=== PATIENT | male | born 1945 | race Hispanic/Latino ===

== ENCOUNTER 2018-01-07 11:00 | Emergency (ER) | payer MEDICARE | END 2018-01-07 11:52 | disposition home or self-care (01) | LOC: EDH 11:00 | DX: Z21 Asymptomatic human immunodeficiency virus [HIV] infection status (principal); Z76.0 Encounter for issue of repeat prescription; I10 Essential (primary) hypertension; Z88.2 Allergy status to sulfonamides; Z87.891 Personal history of nicotine dependence; Z95.1 Presence of aortocoronary bypass graft ==

== ENCOUNTER 2018-07-03 17:26 | Observation (INO) | payer MEDICARE ==
[~2018-07-03] VITALS: Ht 177.8 cm; Wt 81.4 kg
[2018-07-03 18:13] LABS: BASOPHILS % (AUTO) 0.9 % (0.0-5.0); EOSINOPHILS % (AUTO) 2.7 % (0.0-8.0); LYMPHOCYTES % (AUTO) 16.8 % (21.0-51.0); MEAN CORPUSCULAR HEMOGLOBIN 31.8 pg (27.0-33.0); MEAN CORPUSCULAR HGB CONC 34.3 g/dL (32.0-36.0); MEAN CORPUSCULAR VOLUME 92.7 fL (79-99); MONOCYTES % (AUTO) 8.4 % (3.0-13.0); NEUTROPHILS % (AUTO) 71.2 % (40.0-77.0); NUCLEATED RED BLOOD CELLS 0.1 % (0.0-0.19); PLATELET COUNT (AUTO) 175 K/uL (130-400); RED BLOOD CELL COUNT(AUTO) 4.53 MIL/uL (4.50-6.20); RED CELL DISTRIBUTION WIDTH 15.8 % (11.0-15.5); WHITE BLOOD COUNT (AUTO) 5.8 K/uL (4.8-10.8)
[2018-07-03 18:29] LABS: APPEARANCE,URINE Clear (CLEAR); BILIRUBIN,URINE Negative (NEGATIVE); COLOR,URINE Yellow (YELLOW); GLUCOSE, URINE (UA) Negative (NEGATIVE); KETONES,URINE Negative (NEGATIVE); LEUKOCYTE ESTERASE ,URINE Negative (NEGATIVE); NITRATE,URINE Negative (NEGATIVE); OCCULT BLOOD,URINE Negative (NEGATIVE); PH,URINE 7.5 (5.0-8.0); PROTEIN,URINE Negative (NEGATIVE); UROBILINOGEN,URINE 0.2 mg/dL (0.2-1.0)
[2018-07-03 18:29] LABS: B-TYPE NATRIURETIC PEPTIDE 1520 pg/mL (0-100)
[2018-07-03 18:39] LABS: INR 1.19 (0.85-1.15); PARTIAL THROMBOPLASTIN TIME 27.8 SEC (26.3-35.5); PROTHROMBIN TIME 12.5 SEC (9.6-11.6)
[2018-07-03 18:46] LABS: ALBUMIN 3.9 g/dL (3.5-5.0); BILIRUBIN,TOTAL 1.7 mg/dL (0.2-1.0); CREATININE 1.6 mg/dL (0.5-1.5); POTASSIUM 3.9 mmol/L (3.5-5.1); TOTAL PROTEIN, SERUM 8.3 g/dL (6.0-8.3)
[2018-07-03] MEDS ORDERED: ASPIRIN 325 MG TABLET ONE (19:33)
[2018-07-03] MEDS ORDERED: FUROSEMIDE 10 MG/ML 2ML VIAL ONE (19:33)
[2018-07-03] MEDS ORDERED: FAMOTIDINE 20MG TAB 20 MG TAB PO SCH (21:00)
[2018-07-03] MEDS ORDERED: FUROSEMIDE 10 MG/ML 4ML VIAL IVP SCH (21:00)
[2018-07-03] MEDS ORDERED: ACETAMINOPHEN 325 MG TAB PO PRN (21:00)
[2018-07-03] MEDS ORDERED: MORPHINE SULFATE 2 MG/ML 1ML SYG IV PRN (21:00)
[2018-07-03] MEDS ORDERED: ONDANSETRON HCL 4 MG/2 ML VIAL IV PRN (21:00)
[2018-07-03] MEDS: OSELTAMIVIR PHOSPHATE 75 MG CAP PO SCH (21:00)
[2018-07-03 22:20] VITALS: BP 145/96
[2018-07-03 22:28] LABS: TROPONIN I 0.28 ng/mL (0.00-0.06)
[2018-07-03 23:25] VITALS: BP 137/82
[2018-07-04 03:13] VITALS: BP 142/75
[2018-07-04 04:53] LABS: HEMATOCRIT 42.1 % (42-54); MEAN CORPUSCULAR HEMOGLOBIN 30.9 pg (27.0-33.0); MEAN CORPUSCULAR HGB CONC 33.3 g/dL (32.0-36.0); MEAN CORPUSCULAR VOLUME 92.7 fL (79-99); NUCLEATED RED BLOOD CELLS 0.1 % (0.0-0.19); PLATELET COUNT (AUTO) 185 K/uL (130-400); RED BLOOD CELL COUNT(AUTO) 4.54 MIL/uL (4.50-6.20); RED CELL DISTRIBUTION WIDTH 15.9 % (11.0-15.5)
[2018-07-04 05:04] LABS: B-TYPE NATRIURETIC PEPTIDE 1530 pg/mL (0-100)
[2018-07-04 05:18] LABS: ALBUMIN 3.5 g/dL (3.5-5.0); BILIRUBIN,TOTAL 1.2 mg/dL (0.2-1.0); CREATININE 1.8 mg/dL (0.5-1.5); POTASSIUM 3.3 mmol/L (3.5-5.1); TOTAL PROTEIN, SERUM 7.6 g/dL (6.0-8.3); TROPONIN I 0.28 ng/mL (0.00-0.06)
[2018-07-04] MEDS: OSELTAMIVIR PHOSPHATE 75 MG CAP PO SCH (07:28)
[2018-07-04 08:00] VITALS: BP 146/95
--- NOTE | 2018-07-04 08:00 | NUR ---
PATIENT UPSET [facility] DO[facility] NOT CARRY ONE OF HIS HIV MEDS. STATES HE LIVES ALONE AND HAS NO ONE TO BRING IN HIS HOME MEDS. STATES HE IS WILLING TO LEAVE THIS MORNING AMA IF HE NEEDS TO SO HE CAN TAKE HIS MEDS. DAY SHIFT NURSE AND CHARGE NURSE MADE AWARE OF HIS INTENTION TO LEAVE.
[2018-07-04] MEDS ORDERED: RALT400T PO (08:07)
[2018-07-04] MEDS ORDERED: FENO134C PO (08:07)
[2018-07-04] MEDS ORDERED: LEVO100T4 PO (08:07)
[2018-07-04] MEDS ORDERED: AEC81 PO (08:07)
[2018-07-04] MEDS ORDERED: LAMI1TAB PO (08:07)
[2018-07-04] MEDS ORDERED: ENOXAPARIN SODIUM 30 MG/0.3 ML SQ SCH (09:00)
--- NOTE | 2018-07-04 09:05 | NUR ---
MR. SMALL Jimbo LLANOS. SIGNED THE DISCHARGE AGAINST MEDICAL ADVICE. . REASON. THIS HOSPITAL WAS NOT ABLE TO PROVIDE HIS HOME MEDICATIONS HIS BRAND . MEDS FOR HIS CARE. .. WILL LET HOSPITALIST DOCTOR AWARE. SL TO HIS RFA, [place] . WITH NO HEMATOMA . SM PRESSURE DRSG PLACED ,
--- NOTE | 2018-07-04 11:02 | NUR ---
GABINO NOTE PT NOT SEEN BY INESSA LLOYD Addendum: 07/04/18 at 1102 by VALENTINO GUTIÉRREZ RN CM Amended: Links added.
== END 2018-07-04 09:08 | disposition left against medical advice (07) ==
LOC: EDH 17:26 → EDHIP 20:49 → 3AH 21:43
PROVIDERS: ADMIT Internal Medicine; ATTEND Internal Medicine
DX: J10.1 Influenza due to other identified influenza virus with other respiratory manifestations (principal); E87.1 Hypo-osmolality and hyponatremia; I11.0 Hypertensive heart disease with heart failure; I50.9 Heart failure, unspecified; I25.10 Atherosclerotic heart disease of native coronary artery without angina pectoris; B20 Human immunodeficiency virus [HIV] disease; K59.00 Constipation, unspecified; N28.9 Disorder of kidney and ureter, unspecified; Z95.1 Presence of aortocoronary bypass graft; Z88.2 Allergy status to sulfonamides
CPT/HCPCS: 36415 ×2; 71045; 80053 ×2; 81003; 82150; 82550 ×3; 83605; 83690; 83874 ×2; 83880 ×2; 84484 ×3; 85025; 85027; 85610; 85730; 87040 ×2; 87804 ×2; 93005 ×3; 99284; G0378 ×12; J1940